=== PATIENT | female | born 1965 | race African-American/Black ===

== ENCOUNTER → 2019-11-24 | Day surgery (SDC) | payer OTHER ==
--- NOTE | 2019-11-25 10:48 | PATH ---
Surgical Pathology Report Patient Name: GLENN REYES [facility] Rec. #: [id number] /Age/Gender: 1965 (Age: 54) / F Account: [id number] [facility] Taken: 11/24/2019 Received: 11/24/2019 Reported: 11/25/2019 Physicians: Gita Vail Specimen(s) Received BREAST, NIPPLE/AREOLA/RETROAREOLAR, INTRADUCTAL MASS, LEFT, ULTRASOUND GUIDED CORE BIOPSY Clinical History Left breast retroareolar intraductal mass Final Diagnosis BREAST, NIPPLE/AREOLA/RETROAREOLAR, INTRADUCTAL MASS, LEFT, ULTRASOUND GUIDED CORE BIOPSY: BENIGN BREAST PARENCHYMA WITH MILD PERIDUCTAL CHRONIC INFLAMMATION, RARE DILATED DUCTS, RARE AGGREGATE OF PROTEINACEOUS MATERIAL/DEBRIS AND HEMORRHAGE ASSOCIATED MACROPHAGES AND NEUTROPHILS CONSISTENT WITH CYST CONTENTS. SEE COMMENT. Comment: Overall findings may represent cyst rupture with associated reactive changes. Suggest clinical and radiologic correlation. Electronically Signed Cece Neville M.D. Gross Description Received in formalin labeled "left breast nipple/areola," is a 0.6 x 0.4 x 0.1 cm aggregate of gordillo-yellow, irregular to cylindrical portions of fibroadipose tissue. The formalin is filtered and the specimen is entirely submitted in one cassette. Time to formalin fixation: Less than one minute Total formalin fixation time: Approximately 6 hours. /11/24/2019 saudi/11/24/2019
== END | disposition home or self-care (01) ==
LOC: JRADUS-SUR 10:32
PROVIDERS: ATTEND Nurse Practitioner Family
PROC: 0H9U3ZX Drainage of Left Breast, Percutaneous Approach, Diagnostic (ICD-10-PCS; principal; 2019-11-24)
DX: D24.2 Benign neoplasm of left breast (principal)
CPT/HCPCS: 19083; 87899; 88305-TC; A4648